=== PATIENT | male | born 1965 | race Caucasian/White ===

== ENCOUNTER → 2016-04-17 | Outpatient (CLI) | payer BC ==
[~2016-04-17] MED LIST: ASPI-390 PO; CYCL10TA7; KETO10TA PO; MELO7.5T5 PO; METH2.5T PO; ORNI125 INJ; OXYC1TAB3 PO; RIZA5TAB10 PO; TOFA1TAB PO; TRAM-10 PO
--- NOTE | 2016-04-17 15:34 | DIAGNOSTIC IMAGING REPORT ---
CHEST 2 VIEWS ROUTINE CLINICAL HISTORY: COUGH dyspnea COMPARISON STUDY: No previous studies for comparison. FINDINGS: The bones soft tissues and hemidiaphragms are normal. The cardiomediastinal silhouette is normal. The lungs are clear. The pulmonary vasculature is normal. IMPRESSION: Negative chest. Electronically signed by: Huang Ashley M.D. 04/17/2016 3:32 PM Dictated Date/Time: 04/17/2016 3:32 PM
== END | disposition home or self-care (01) ==
LOC: C.RAD 15:09
PROVIDERS: ATTEND Nurse Practitioner
DX: R05 Cough (principal)

== ENCOUNTER → 2016-05-01 | Outpatient (CLI) | payer BC ==
[~2016-05-01] VITALS: Ht 185.4 cm; Wt 129.1 kg
[2016-05-01 12:51] VITALS: BP 123/72; PULSE 88; Ht 185.4 cm; Wt 129.1 kg
== END | disposition home or self-care (01) ==
LOC: C.NEUR 12:15
PROVIDERS: ATTEND Internal Medicine Pulmonary Disease
DX: G47.33 Obstructive sleep apnea (adult) (pediatric) (principal)

== ENCOUNTER → 2016-07-07 | Outpatient (CLI) | payer BC ==
[~2016-07-07] MED LIST changes: -METH2.5T PO; -OXYC1TAB3 PO; -TOFA1TAB PO
[2016-07-07 09:37] LABS: BASO % 0.4 %; BASO ABS # 0.02 K/uL (0-0.2); COMPLETE YES; EOS % 8.6 %; HEMATOCRIT 40.5 % (42-52); IG% 0.4 %; LYMPH % 24.6 %; LYMPH ABS # 1.32 K/uL (1.2-3.4); MEAN CELL VOLUME 82.8 fL (80-100); MEAN CORPUSCULAR HEMOGLOBIN 27.2 pg (25-34); MEAN CORPUSCULAR HGB CONC 32.8 g/dl (32-36); MEAN PLATELET VOLUME 11.1 fL (7.4-10.4); MONO % 6.3 %; NEUT % 59.7 %; PLATELET COUNT 189 K/uL (130-400); RED BLOOD COUNT 4.89 M/uL (4.7-6.1); WHITE BLOOD COUNT 5.37 K/uL (4.8-10.8)
== END | disposition home or self-care (01) ==
LOC: C.LAB 07:17
PROVIDERS: ATTEND Anesthesiology
DX: Z01.812 Encounter for preprocedural laboratory examination (principal)

== ENCOUNTER → 2016-09-02 | Outpatient (CLI) | payer BC ==
[2016-09-02 10:11] LABS: BASO % 0.6 %; BASO ABS # 0.03 K/uL (0-0.2); COMPLETE YES; HEMATOCRIT 41.6 % (42-52); IG% 0.4 %; LYMPH % 30.9 %; LYMPH ABS # 1.62 K/uL (1.2-3.4); MEAN CELL VOLUME 82.7 fL (80-100); MEAN CORPUSCULAR HEMOGLOBIN 27.2 pg (25-34); MEAN CORPUSCULAR HGB CONC 32.9 g/dl (32-36); MEAN PLATELET VOLUME 10.2 fL (7.4-10.4); MONO % 4.8 %; NEUT % 58.3 %; PLATELET COUNT 195 K/uL (130-400); RED BLOOD COUNT 5.03 M/uL (4.7-6.1); WHITE BLOOD COUNT 5.24 K/uL (4.8-10.8)
== END | disposition home or self-care (01) ==
LOC: C.LAB 09:29
PROVIDERS: ATTEND Physician Assistant Medical
DX: Z01.812 Encounter for preprocedural laboratory examination (principal)

== ENCOUNTER → 2017-04-22 | Outpatient (CLI) | payer BC ==
[~2017-04-22] VITALS: Ht 185.4 cm; Wt 112.0 kg
[2017-04-22 14:42] VITALS: BP 102/65; PULSE 80; Ht 185.4 cm; Wt 112.0 kg
== END | disposition home or self-care (01) ==
LOC: C.NEUR 14:29
PROVIDERS: ATTEND Physician Assistant
DX: G47.33 Obstructive sleep apnea (adult) (pediatric) (principal)

== ENCOUNTER → 2017-07-04 | Outpatient (CLI) | payer BC ==
[~2017-07-04] MED LIST changes: -CYCL10TA7; +CYCL10TA7 PO; -KETO10TA PO; +PROP10TA7 PO; -TRAM-10 PO
[2017-07-04 09:57] LABS: BASO % 0.6 %; BASO ABS # 0.03 K/uL (0-0.2); EOS % 4.2 %; EOS ABS # 0.22 K/uL (0-0.5); HEMATOCRIT 40.5 % (42-52); HEMOGLOBIN 14.1 g/dL (14.0-18.0); IG# 0.02 K/uL (0.00-0.02); LYMPH % 37.6 %; LYMPH ABS # 1.95 K/uL (1.2-3.4); MEAN CORPUSCULAR HEMOGLOBIN 29.3 pg (25-34); MEAN CORPUSCULAR HGB CONC 34.8 g/dl (32-36); MEAN PLATELET VOLUME 10.2 fL (7.4-10.4); MONO % 7.3 %; MONO ABS # 0.38 K/uL (0.11-0.59); NEUT % 49.9 %; NEUT ABS # 2.59 K/uL (1.4-6.5); PLATELET COUNT 189 K/uL (130-400); RED CELL DISTRIBUTION WIDTH CV 15.3 % (11.5-14.5); WHITE BLOOD COUNT 5.19 K/uL (4.8-10.8)
== END | disposition home or self-care (01) ==
LOC: C.LAB 09:26
PROVIDERS: ATTEND Physician Assistant
DX: Z01.812 Encounter for preprocedural laboratory examination (principal); M54.2 Cervicalgia; M54.6 Pain in thoracic spine; M79.1 Myalgia

== ENCOUNTER → 2017-10-01 | Outpatient (CLI) | payer BC | END | disposition home or self-care (01) | LOC: C.LAB 09:07 | PROVIDERS: ATTEND Family Medicine | DX: R42 Dizziness and giddiness (principal) ==

== ENCOUNTER → 2017-10-08 | Outpatient (CLI) | payer BC ==
[~2017-10-08] MED LIST changes: +GADAVIST IV PRN
--- NOTE | 2017-10-08 10:01 | DIAGNOSTIC IMAGING REPORT ---
BRAIN COMBO FOR IAC HISTORY: 51 years-old Male BRAIN COMBO acute dizziness and gait instability. COMPARISON: Brain MRI 10/24/2012 TECHNIQUE: Multiplanar multisequence MRI of the brain was obtained both with and without the use of 10 mL Gadavist utilizing institutional internal auditory canal protocol. FINDINGS: No restricted diffusion to suggest acute or subacute infarct. The midline structures including the corpus callosum, brainstem, optic chiasm, pituitary and pineal glands appear unremarkable the sagittal T1 series. There is no cerebellar tonsillar herniation. There is no acute intracranial hemorrhage, midline shift, abnormal extra-axial collections, hydrocephalus or intracranial mass. There are a few scattered areas of subcentimeter T2/FLAIR prolongation about the subcortical and periventricular white matter which are indeterminate however statistically favor chronic microvascular ischemic changes. Findings not significantly changed from comparison. No mass of the cerebellar pontine angle. The 7th and 8th cranial nerves appear unremarkable. There is no mass identified within either internal auditory canal. The cisternal portions of the bilateral 5th cranial nerves also appear unremarkable. There is no abnormal intra-axial or extra-axial enhancement identified. The major flow voids appear patent. Orbits are symmetric and within normal limits. Minimal mucosal thickening of the ethmoid air cells. Mastoid air cells are clear. This orbits appear unremarkable. Unchanged T1 and T2 hypointense benign-appearing subcutaneous lesion of the left parietal scalp, 6 mm. IMPRESSION: 1. No acute intracranial abnormality. 2. Normal appearance and course of the bilateral 7th and 8th cranial nerves and internal auditory canals without abnormal enhancement or mass . The above report was generated using voice recognition software. It may contain grammatical, syntax or spelling errors. Electronically signed by: Leopoldo Zepeda M.D. 10/08/2017 9:59 AM Dictated Date/Time: 10/08/2017 9:51 AM
== END | disposition home or self-care (01) ==
LOC: C.MRIBC 08:15
PROVIDERS: ATTEND Physician Assistant
DX: R42 Dizziness and giddiness (principal)